=== PATIENT | male | born 1970 | race African-American/Black ===

== ENCOUNTER 2020-06-25 07:58 | Day surgery (SDC) | payer OTHER ==
[2020-06-22 11:44] LABS: COVID AG,FIA SOURCE NASOPHARYNGEAL
[2020-06-22 11:52] LABS: BASOPHILS % (AUTO) 1.1 % (0.0-2.0); EOSINOPHILS % (AUTO) 2.1 % (1.0-6.0); HEMATOCRIT 43.2 % (41-53); HEMOGLOBIN 14.5 g/dL (13.5-17.5); LYMPHOCYTES # (AUTO) 0.9 K/uL (1.0-4.8); LYMPHOCYTES % (AUTO) 17.8 % (22.0-44.0); MEAN CORPUSCULAR HEMOGLOBIN 34.5 pg (26.0-34.0); MEAN CORPUSCULAR HGB CONC 33.5 G/dL (31.0-37.0); MEAN CORPUSCULAR VOLUME 103 fL (80-100); MONOCYTES # (AUTO) 0.5 K/uL (0.1-1.0); MONOCYTES % (AUTO) 11.3 % (2.0-9.0); NEUTROPHILS # (AUTO) 3.3 K/uL (1.8-7.7); NEUTROPHILS % (AUTO) 67.7 % (40.0-70.0); PLATELET COUNT (AUTO) 218 K/uL (150-450); RED BLOOD CELL COUNT(AUTO) 4.21 MIL/uL (4.50-5.90); RED CELL DISTRIBUTION WIDTH 13.2 % (11.5-14.5)
[2020-06-22 12:03] LABS: ANION GAP 8 mmol/L (8-16); CARBON DIOXIDE 30 mmol/L (22-29); CHLORIDE 104 mmol/L (98-107); CREATININE 1.25 mg/dL (0.60-1.30); GLOMERULAR FILTR. RATE CALC > 60 mL/min (>60); GLUCOSE,RANDOM 105 mg/dL (70-110); POTASSIUM 4.4 mmol/L (3.5-5.1); SODIUM SERUM 142 mmol/L (136-145); UREA NITROGEN, BLOOD 10 mg/dL (7-18)
[2020-06-22 12:17] LABS: ALANINE AMINOTRANSFERASE 30 U/L (12-78); ALBUMIN 3.5 g/dL (3.4-5.0); ALKALINE PHOSPHATASE 64 U/L (46-116); ASPARTATE AMINOTRANSFERASE 25 U/L (15-37); BILIRUBIN,TOTAL 0.4 mg/dL (0.1-1.0); TOTAL PROTEIN, SERUM 7.5 g/dL (6.4-8.2)
[~2020-06-25] VITALS: Ht 182.9 cm; Wt 103.6 kg
[~2020-06-25 07:58] MED LIST: BUPIVACAINE HCL/PF 0.5% 30 ML VIAL ONE; CeFAZolin 2 GM/DEXTROSE 50 ML IV ONE; LIDOCAINE 2%/EPI 1:200,000/PF 20 ML VIAL ONE; RINGERS SOLUTION,LACTATED 1,000 ML IV ONE
[2020-06-25] MEDS ORDERED: ROCURONIUM BROMIDE 10 MG/ML 5 ML VIAL IVP ONE (07:59)
[2020-06-25] MEDS ORDERED: 0.9% SODIUM CHLORIDE 10 ML VIAL IVP ONE (07:59)
[2020-06-25] MEDS ORDERED: ONDANSETRON HCL 4 MG/2 ML VIAL IVP ONE (07:59)
[2020-06-25] MEDS ORDERED: LIDOCAINE/PF 2% 5 ML VIAL IM ONE (07:59)
[2020-06-25] MEDS ORDERED: DEXAMETHASONE SOD PHOS 4 MG/ML VIAL IVP ONE (07:59)
[2020-06-25] MEDS ORDERED: MIDAZOLAM HCL 2 MG/2 ML VIAL IVP ONE (07:59)
[2020-06-25] MEDS ORDERED: KETOROLAC TROMETHAMINE 60 MG/2 ML VIAL IM ONE (07:59)
[2020-06-25] MEDS ORDERED: PHENYLEPHRINE HCL 10 MG/ML VIAL IVP ONE (07:59)
[2020-06-25] MEDS ORDERED: FentaNYL CITRATE-PF 100 MCG/2 ML VIAL IVP ONE (07:59)
[2020-06-25] MEDS ORDERED: PROPOFOL 1% 20 ML VIAL IVP ONE (07:59)
[2020-06-25] MEDS ORDERED: BUME1TAB6 PO (08:24)
[2020-06-25] MEDS ORDERED: CARV25TA32 PO (08:24)
[2020-06-25] MEDS ORDERED: SPIR25 PO (08:24)
[2020-06-25] MEDS ORDERED: SACU1TAB4 PO (08:24)
[2020-06-25] MEDS ORDERED: ASPI-1111 PO (08:24)
[2020-06-25] MEDS ORDERED: RINGERS SOLUTION,LACTATED 1,000 ML IV ONE ×2 (09:00→09:49)
[2020-06-25] MEDS ORDERED: MEPERIDINE-PF 25 MG/ML VIAL IVP PRN (09:45)
[2020-06-25] MEDS ORDERED: HYDROmorphone 2 MG/ML SYRINGE IVP PRN (09:45)
[2020-06-25] MEDS ORDERED: FentaNYL CITRATE-PF 100 MCG/2 ML VIAL IVP PRN (09:45)
[2020-06-25] MEDS ORDERED: HYDROCODONE/ACETAMINOPHEN 5-325 MG TABLET PO PRN (11:00)
[2020-06-25] MEDS ORDERED: IBUPROFEN 800 MG TABLET PO PRN (11:00)
[2020-06-25] MEDS ORDERED: ACETAMINOPHEN 500 MG TABLET PO PRN (11:00)
[2020-06-25] MEDS ORDERED: OXYGEN THERAPY IH SCH (20:00)
== END 2020-06-25 12:20 | disposition home or self-care (01) ==
LOC: SURGERY 07:58
PROVIDERS: ATTEND Surgery
DX: K40.30 Unilateral inguinal hernia, with obstruction, without gangrene, not specified as recurrent (principal); I11.0 Hypertensive heart disease with heart failure; G47.30 Sleep apnea, unspecified; I50.9 Heart failure, unspecified; F17.290 Nicotine dependence, other tobacco product, uncomplicated; Z79.899 Other long term (current) drug therapy; Z98.890 Other specified postprocedural states
CPT/HCPCS: 36415; 49507; 80053; 85025; 87426; 88302; C9803; J0690; J1100; J1885; J2250; J2370; J2405; J2704; J3010; J3490 ×2; J7120